=== PATIENT | female | born 1945 | race Caucasian/White ===

== ENCOUNTER → 2017-02-13 | Outpatient (CLI) | payer MEDICARE, BC ==
--- NOTE | ~2017-02-13 | US37 ---
[facility] A Service of [facility] & [facility] RADIOLOGY TEXT RESULTS PATIENT: SUMA CLEMONS LOCATION: CNIV : 43 UNIT #: [id number] AGE: [address]: Rupali Valerio APRN SEX: F ORDER DR: [id number] [facility] [address] [place], [place] [address] [id number] O MR#: [id number] Acc #: [id number] NAME: SUMA CLEMONS : 1945 SEX: F STUDY DATE/TIME: 02/13/2017 12:43 UNIT: [facility] ROOM: STUDY DESCRIPTION: US Carotid W/Doppler Bilateral Attending Physician: Rupali Valerio A.P.R.N. Referring Physician: Rupali Valerio A.P.R.N. Ordering Physician: Rupali Valerio A.P.R.N. Primary Care Physician: Rupali Valerio A.P.R.N. MEDICAL IMAGING REPORT This report is preliminary unless electronic signature is present EXAM Bilateral carotid Doppler ultrasound DATE: 02/13/2017 HISTORY Diabetes. Heart disease, murmur. Left carotid bruit for 2 years. COMPARISON Bilateral carotid Doppler ultrasound 04/17/2015. PROCEDURE Real-time fuentes-scale, color Doppler and spectral Doppler imaging was performed of the bilateral cervical carotid arteries and vertebral arteries. Estimated stenosis is based on standard NASCET criteria methodology. FINDINGS There is mild intimal hyperplasia within the right common carotid artery and carotid bulb. There is soft and calcific atherosclerotic plaquing within the right carotid bulb extending into the proximal right internal carotid artery. Peak systolic velocity in the right internal carotid artery proximal segment 75.2 cm/sec, mid segment 92 cm/sec, distal segment 110.3 cm/sec, indicating less than 50% luminal stenosis by NASCET methodology. Right vertebral artery is patent with normal antegrade flow. Left common carotid artery demonstrates mild intimal hyperplasia. Dense calcific atherosclerosis is demonstrated within the left carotid bulb extending into the proximal left internal and external carotid arteries. Left external carotid artery is patent. Left internal carotid artery peak systolic velocity proximal segment 151.2 cm/sec, mid segment 130.6 cm/sec, distal segment 116.2 cm/sec, indicating 50% to 69% luminal stenosis by [facility] [place] A Service of [facility] & [facility] RADIOLOGY TEXT RESULTS PATIENT: SUMA CLEMONS LOCATION: [facility] : 43 UNIT #: [id number] AGE: [address]: Rupali Valerio APRN SEX: F ORDER DR: CHELA methodology. Left vertebral artery is patent with normal antegrade flow. Right ICA to CCA ratio 1.1. Left ICA to CCA ratio 1.5. IMPRESSION 1. 50% to 69% luminal stenosis in the left internal carotid artery based on NASCET criteria NASCET methodology. 2. Less than 50% luminal stenosis in the right internal carotid artery based on NASCET methodology. 3. Peak systolic loss in the left internal carotid artery has increased compared to the 04/17/2015 examination. 4. SPECIAL COMMENT: The elevated peak systolic velocities documented within the common carotid arteries on previous examination do not appear elevated today. The suspected high velocities in the internal carotid arteries are not thought to be overestimated based on this exam. 5. Patency and antegrade flow of the bilateral vertebral arteries. Dictated by... Yamile Suarez M.D. THIS IS AN ELECTRONICALLY VERIFIED REPORT Yamile Suarez M.D. at 02/14/2017 8:56 AM ABRAHAM/sally TD: 02/13/2017 22:49 JOB #: [id number] MEDICAL IMAGING REPORT Page 1 of 1 COPY
== END | disposition home or self-care (01) ==
LOC: CNIV 12:11 → CECH 13:00
DX: R01.1 Cardiac murmur, unspecified (principal); R09.89 Other specified symptoms and signs involving the circulatory and respiratory systems; I65.23 Occlusion and stenosis of bilateral carotid arteries; I51.7 Cardiomegaly; I34.0 Nonrheumatic mitral (valve) insufficiency; I36.1 Nonrheumatic tricuspid (valve) insufficiency
CPT/HCPCS: 93306; 93880

== ENCOUNTER → 2017-02-17 | Outpatient (CLI) | payer MEDICARE, BC ==
--- NOTE | ~2017-02-17 | MY11 ---
[facility]. [facility] A Service [facility] RADIOLOGY TEXT RESULTS PATIENT: SUMA CLEMONS LOCATION: [facility] : 43 UNIT #: [id number] AGE: [address]: Rupali Valerio APRN SEX: F ORDER DR: [id number] [address] [address] [id number] O MR#: [id number] Acc #: [id number] NAME: SUMA CLEMONS : 1945 SEX: F STUDY DATE/TIME: 02/17/2017 10:45 UNIT: [facility] ROOM: STUDY DESCRIPTION: MY Mammogram Screening Dig Jt Attending Physician: Rupali Valerio A.P.R.N. Referring Physician: Rupali Valerio A.P.R.N. Ordering Physician: Rupali Valerio A.P.R.N. Primary Care Physician: Rupali Valerio A.P.R.N. MEDICAL IMAGING REPORT This report is preliminary unless electronic signature is present. EXAM Digital screening mammogram 02/17/2017 [facility] HISTORY 71-year-old woman; family history of ovarian cancer in mother. Annual screening. COMPARISON 04/17/2015 FINDINGS Digital imaging of each breast was completed utilizing a two-view examination of each breast in craniocaudal and mediolateral-oblique projections. Review and interpretation of digital mammograms include a second review in conjunction with FDA-approved CAD device. There is a normal parenchymal presentation bilaterally consistent with the patient's age. There are no breast masses imaged and no parenchymal asymmetry is visualized. There are no suspicious microcalcifications and I see no focal architectural disturbance. NOTE: Breast parenchyma is predominantly fatty replaced. IMPRESSION Negative screening digital mammogram. One-year followup recommended. Patients over the age of 40 are entered into a reminder system with target due date for the next mammogram. A result letter will also be sent to the patient. BIRADS: 1 Negative [facility] A Service of [facility] RADIOLOGY TEXT RESULTS PATIENT: SUMA CLEMONS LOCATION: [facility] : 41 UNIT #: [id number] AGE: [address]: Rupali Valerio APRN SEX: F ORDER DR: Dictated by... Gene Peña M.D. THIS IS AN ELECTRONICALLY VERIFIED REPORT Gene Peña M.D. at 02/17/2017 2:41 PM KATERINE/lee TD: 02/17/2017 14:14 JOB #: [id number] MEDICAL IMAGING REPORT Page 1 of 1
== END | disposition home or self-care (01) ==
LOC: SMAM 10:03
DX: Z12.31 Encounter for screening mammogram for malignant neoplasm of breast (principal)
CPT/HCPCS: G0202